=== PATIENT | male | born 1995 | race Caucasian/White ===

== ENCOUNTER 2025-04-11 08:39 | Outpatient (RCR) | payer OTHER, SELFPAY ==
--- NOTE | 2025-04-11 09:54 | OPREHPOC ---
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 R wrist extension to 5/5. R little finger abduction to 4+/5 or better. Target Visit 9 PT Problem 3 PT Problem #3 Impaired Functional Mobility PT Goal 1 Goal / Goal Update Quick DASH to display 0% functional deficits. No paresthesia's in the L hand. Target Visit 9
--- NOTE | 2025-04-11 09:54 | PTOPEVAL1 ---
Assessment and note entered by JT File, PT Evaluation Information Assessment Status Evaluation Diagnosis paresthesia's of R hand Other ICD-10 Condition Codes ( R20.2 PT) Onset 03/13/25 Subjective Information Patient reports he cannot recall an exact date that his symptoms started, but reports he gets tingling to the little finger and back half of the R hand. He reports he was given some medication to try and reduce the symptoms, and cockup splint, but reports this did not help. He reports his symptoms are somewhat better. He reports he has no pain, but is mostly annoyed by the symptoms. 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 He does not recall any injury. He reports no history of neck issues. He reports when his symptoms first started , he could feel the symptoms increase with palpation around the medial elbow. Reported Pain Level Pain Score 0: Self Report Assessment PT Clinical Summary Mr. Matthews is a pleasant 29 yo man who presents to skilled PT services for evaluation and treatment of R hand paresthesia's. He presents with signs and symptoms consistent with Cubital Tunnel Syndrome. Continued skilled PT is indicated to improve his deficits in R hand strength and reduce his paresthesia's to return to his prior level functional activity performance and quality of life. Plan of Care Interventions Electrical Stimulation,Hot Pack/Cold Pack,Manual Therapy,Neuro Re-education,Patient/Caregiver Education,Therapeutic Activities,Therapeutic Exercise,Ultrasound,Other Other Interventions dry needling PT Services Indicated Yes Treatment Frequency and 3x weekly for 9 visits Duration These treatments will address the objective and functional deficits as defined above. The patient will be advanced safely and appropriately in order for the patient to progress towards his/her prior level of function. Additional exercises will be introduced and as well as a comprehensive home exercise program upon discharge, if needed, ?to ensure carryover of functional gains achieved in the clinic. This treatment plan has been reviewed and agreement upon by the patient.
--- NOTE | 2025-05-02 08:48 | OPREHPOC ---
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 R wrist extension to 5/5. R little finger abduction to 4+/5 or better. Target Visit 9 Progress Met PT Problem 3 PT Problem #3 Impaired Functional Mobility PT Goal 1 Goal / Goal Update Quick DASH to display 0% functional deficits. No paresthesia's in the R hand. met Target Visit 9 Progress Partially Met
--- NOTE | 2025-05-02 08:48 | PTOPDC ---
Assessment and note entered by JT File, PT Evaluation Information Assessment Status Discharge Diagnosis paresthesia's of R hand Other ICD-10 Condition Codes ( R20.2 PT) Onset 03/13/25 Subjective Information patient reports he feels A lot better than he did prior to starting skilled PT. he reports he has no symptoms any longer in the R hand. Reported Pain Level Pain Score 0: Self Report Assessment PT Clinical Summary mr. agosto presents to skilled PT services for his 9th skilled PT visit. he presents today no longer having paresthesias in the R hand. he has met all but one part of a goal for skilled PT. as of this date, he will DC skilled PT, and continue with HEP independent at home. Plan of Care PT Services Indicated Yes
== END 2025-05-02 08:59 | disposition home or self-care (01) ==
LOC: CHSPT 08:39
PROVIDERS: PCP Nurse Practitioner Family; Visit Provider Nurse Practitioner Family
DX: R20.2 Paresthesia of skin (principal)
CPT/HCPCS: 97035; 97110; 97112; 97161